=== PATIENT | male | born 1965 | race Caucasian/White ===

== ENCOUNTER 2017-06-03 08:05 | Day surgery (SDC) | payer OTHER ==
[2017-06-03] MEDS ORDERED: MIDAZOLAM 1 MG/ML 2 ML INJ ×2 (10:09)
[2017-06-03] MEDS ORDERED: FENTAnyl 50 MCG/ML VIAL (10:09)
== END 2017-06-03 12:16 | disposition home or self-care (01) ==
LOC: GIL 08:05
DX: Z12.11 Encounter for screening for malignant neoplasm of colon (principal); K64.4 Residual hemorrhoidal skin tags
CPT/HCPCS: 45378